=== PATIENT | female | born 1995 | race Two or more races ===

== ENCOUNTER 2018-10-07 22:46 | Emergency (ER) | payer OTHER ==
[~2018-10-07] VITALS: Ht 157.5 cm; Wt 49.0 kg
[2018-10-07] MEDS ORDERED: UNISOM25 MG (23:19)
[2018-10-07] MEDS ORDERED: ATIVAN0.5 M1 (23:19)
[2018-10-07] MEDS ORDERED: ZITHROMAX500 MG PO (23:43)
[2018-10-07] MEDS ORDERED: INTESTINEX680 M1 PO (23:43)
== END 2018-10-07 23:51 ==
LOC: ER 22:46
DX: J35.01 Chronic tonsillitis (principal)

== ENCOUNTER 2018-10-11 09:42 | Outpatient (CLI) | payer OTHER | END 2018-10-11 09:59 | disposition home or self-care (01) | LOC: LAB 09:42 | DX: Z20.2 Contact with and (suspected) exposure to infections with a predominantly sexual mode of transmission (principal); A54.5 Gonococcal pharyngitis; N77.1 Vaginitis, vulvitis and vulvovaginitis in diseases classified elsewhere; N91.2 Amenorrhea, unspecified ==

== ENCOUNTER → 2018-10-11 | Emergency (ER) | payer OTHER ==
[~2018-10-11] MED LIST: ATIVAN0.5 M1; INTESTINEX680 M1 PO; UNISOM25 MG; ZITHROMAX500 MG PO
== END | disposition home or self-care (01) ==
LOC: ER 11:55
DX: J03.80 Acute tonsillitis due to other specified organisms (principal)

== ENCOUNTER 2020-12-26 18:49 | Emergency (ER) | payer OTHER ==
[~2020-12-26] VITALS: Ht 157.5 cm; Wt 51.7 kg
[2020-12-26] MEDS ORDERED: PROZAC40 MG (19:03)
== END 2020-12-26 22:38 | disposition home or self-care (01) ==
LOC: ER 18:49
DX: N39.0 Urinary tract infection, site not specified (principal); B96.29 Other Escherichia coli [E. coli] as the cause of diseases classified elsewhere

== ENCOUNTER 2025-05-06 03:16 | Emergency (ER) | payer OTHER ==
[~2025-05-06] VITALS: Ht 152.4 cm; Wt 49.9 kg
[~2025-05-06 03:16] MED LIST changes: +PROZAC40 MG
[2025-05-06] MEDS ORDERED: PROMETHAZINE HCL 50 MG/ML AMPUL IM STA (03:53)
[2025-05-06] MEDS ORDERED: KETOROLAC TROMETHAMINE 30 MG VIAL IV STA (03:54)
[2025-05-06] MEDS ORDERED: PROMETHAZINE HCL 50 MG/ML AMPUL IM ONE (03:55)
[2025-05-06] MEDS ORDERED: 0.9 % SODIUM CHLORIDE 1,000 ML IV STA (03:55)
[2025-05-06] MEDS ORDERED: FAMOtidine 10 MG/ML (4ML VIAL) IV PUSH STA (03:55)
[2025-05-06] MEDS ORDERED: KETOROLAC TROMETHAMINE 30 MG VIAL ONE (03:55)
[2025-05-06] MEDS ORDERED: FAMOTIDINE/PF 20 MG/2 ML VIAL ONE (03:55)
[2025-05-06 04:10] LABS: BASO % 0.3 % (0.1-1.2); EOS # 0.10 (0.04-0.54); EOS % 1.4 % (0.7-7.0); LYMPH # 0.31 (1.18-3.74); LYMPH % 4.3 % (19.3-53.1); MEAN PLATELET VOLUME 10.00 fl (9.4-12.4); MONO # 0.54 (0.24-0.82); MONO % 7.5 % (4.7-12.5); NEUT # 6.19 (1.56-6.13); NEUT % 86.2 % (34.0-71.1); RED CELL DISTRIBUTION WIDTH 11.9 % (11.6-14.4)
[2025-05-06 04:23] LABS: BUN CREA RATIO 20.0 (7.0-25.0); CREATININE SERUM 0.61 mg/dL (0.55-1.02); GFR 115.96; GLUCOSE FASTING 104.0 mg/dL (65-100); OSMOLALITY SERUM 279.0 MOSM/KG (275-295)
== END 2025-05-06 06:05 | disposition home or self-care (01) ==
LOC: ER 03:16
DX: K52.89 Other specified noninfective gastroenteritis and colitis (principal)